=== PATIENT | female | born 1955 | race Caucasian/White ===

== ENCOUNTER 2018-08-14 08:01 | Outpatient (CLI) | payer MEDICARE, OTHER ==
[~2018-08-14 08:01] MED LIST: ACETAMINOPHEN 325 MG TABLET PO PRN; DIPHENHYDRAMINE HCL 25 MG CAPSULE PO PRN
[2018-08-14] MEDS ORDERED: FUROSEMIDE INJ/PF 20 MG/2 ML SDV IV PRN (09:25)
[2018-08-14] MEDS ORDERED: LIDOCAINE 2% JELLY 5 ML TUBE TOP PRN (09:26)
[2018-08-14 11:13] LABS: HEMATOCRIT 19.6 % (36.0-47.0); MEAN CORPUSCULAR HEMOGLOBIN 29.9 pg (27.0-33.4); MEAN CORPUSCULAR HGB CONC 31.9 g/dL (32.0-36.0); MEAN CORPUSCULAR VOLUME 94 fl (80-97); PLATELET COUNT 178 10^3/uL (150-450); RED CELL DISTRIBUTION WIDTH 22.9 % (11.5-14.0); WHITE BLOOD COUNT 3.1 10^3/uL (4.0-10.5)
[2018-08-14 11:20] LABS: HEMOGLOBIN 6.3 g/dL (12.0-15.5)
[2018-08-14 17:52] VITALS: BP 134/71
== END 2018-08-14 19:50 | disposition home or self-care (01) ==
LOC: II 08:01 → 4N 08:10 → II 19:50
PROVIDERS: ATTEND Internal Medicine
PROC: 30243N1 Transfusion of Nonautologous Red Blood Cells into Central Vein, Percutaneous Approach (ICD-10-PCS; principal; 2018-08-14)
PROC: 3E033GC Introduction of Other Therapeutic Substance into Peripheral Vein, Percutaneous Approach (ICD-10-PCS; 2018-08-14)
DX: D64.9 Anemia, unspecified (principal)
CPT/HCPCS: 86900; 86901; 36415; 36430; 86850; 86920; P9016; A9270 ×2; J1940; 96374